=== PATIENT | female | born 1990 | race African-American/Black ===

== ENCOUNTER 2016-11-06 19:41 | Inpatient (IN) | payer OTHER ==
[~2016-11-06] VITALS: Ht 162.6 cm; Wt 108.2 kg
[2016-11-06 19:42] VITALS: BP 199/104; PULSE 89; RESP 24; TEMP 97.3; O2SAT 100
[2016-11-06 19:57] VITALS: BP 158/119; PULSE 74; RESP 20; O2SAT 99
[2016-11-06 20:49] LABS: AUTOMATED NEUTROPHIL # 4.5 TH/MM3 (1.8-7.7); BASOPHIL # 0.1 TH/MM3 (0-0.2); BASOPHIL % 0.9 % (0.0-2.0); EOSINOPHIL # 0.1 TH/MM3 (0-0.4); EOSINOPHIL % 1.2 % (0.0-4.0); HEMATOCRIT 38.6 % (35.0-46.0); LYMPH % 54.3 % (9.0-44.0); LYMPHOCYTE # 6.8 TH/MM3 (1.0-4.8); MEAN CELL VOLUME 79.7 FL (80.0-100.0); MEAN CORPUSCULAR HEMOGLOBIN 27.7 PG (27.0-34.0); MEAN CORPUSCULAR HGB CONC 34.7 % (32.0-36.0); MONO % 7.6 % (0.0-8.0); PLATELET COUNT 344 TH/MM3 (150-450); RED BLOOD COUNT 4.84 MIL/MM3 (4.00-5.30); RED CELL DISTRIBUTION WIDTH 14.7 % (11.6-17.2); WHITE BLOOD COUNT 12.5 TH/MM3 (4.0-11.0)
[2016-11-06 20:50] LABS: BETA HCG QUANT 3073 MIU/ML (0-5)
[2016-11-06 21:07] LABS: BLOOD, URINE NEG (NEG); COMMENT (UR) CATH-CULT NOT IND; CULTURE IF INDICATED CATH CULTURE NOT IND; GLUCOSE,URINE NEG (NEG); KETONE, URINE TRACE mg/dL (NEG); MUCUS URINE FEW /lpf (OCC); NITRITE,URINE NEG (NEG); SQUAMOUS EPITHELIAL CELL URINE 2 /hpf (0-5); URINE COLOR YELLOW (YELLW/STRAW)
[2016-11-06 21:13] LABS: HEMO FLAGS AUTO DIFF
--- NOTE | 2016-11-06 21:25 | PD ---
HPI Chief Complaint: Abdominal Pain Time Seen by Provider: 19:52 Travel History International Travel<30 days: No Contact w/Intl Traveler<30days: No Traveled to known affect area: No History of Present Illness HPI 25-year-old woman, 2 para 0 with previous ectopic and February of last year, last menstrual period October 09 reportedly 5 weeks presents with the abrupt onset of 10 out of 10 lower abdominal pain and cramping radiating into her back. Pain is primarily in her right lower quadrant radiating into her left lower quadrant. She states symptoms feel similar to when she had her ectopic about 6 months ago. She saw her online media buyer in [place] a couple days ago who reportedly confirmed her and was watching her closely because of her previous ectopic. She was referred to follow-up with a plastic manager down here now that she is moving back to the area. No vomiting. Denies any vaginal bleeding or vaginal discharge. She states prior to today she felt generally well and healthy. No history of abdominal surgery. History Past Medical History Narrative Medical Hypertension Ectopic History of cervicitis Tetanus Vaccination: < 5 Years Influenza Vaccination: No : 2 Past Surgical History Surgical History: No Previous Surgery Social History Alcohol Use: No Tobacco Use: Yes (09/29 PPD) Allergies-Medications (Allergen,Severity, Reaction): Coded Allergies: Amoxicillin (Verified Allergy, Severe, HIVES, 11/06/16) Latex (Verified Allergy, Severe, RASH, 11/06/16) Penicillin (Verified Allergy, Severe, HIVES, 11/06/16) Reglan (Verified Allergy, Severe, 11/06/16) Reported Meds & Prescriptions Reported Meds & Active Scripts Active No Active Prescriptions or Reported Medications Review of Systems Except as stated in HPI: all other systems reviewed are Neg Physical Exam Narrative GENERAL: Anxious 25-year-old woman, holding her abdomen. Appears uncomfortable. SKIN: Warm and dry. CARDIOVASCULAR: Regular rate and rhythm. No murmur appreciated. RESPIRATORY: No accessory muscle use. Clear to auscultation. Breath sounds equal bilaterally. GASTROINTESTINAL: Abdomen is obese, soft, moderate diffuse lower abdominal tenderness. Some voluntary guarding but no rebound. MUSCULOSKELETAL: No obvious deformities. No clubbing. No cyanosis. No edema. NEUROLOGICAL: Awake and alert. No obvious cranial nerve deficits. Motor grossly within normal limits. Normal speech. PSYCHIATRIC: Appropriate mood and affect; insight and judgment normal. : Normal external female genitalia. Moderate chunky white discharge in the vaginal vault. Some dark brown discharge as well. Moderate cervical motion tenderness. No palpable uterine enlargement or adnexal masses. Data Data Last Documented VS Vital Signs Date Time Temp Pulse Resp B/P Pulse Ox O2 Delivery O2 Flow Rate FiO2 11/06/16 22:56 64 18 166/98 99 Room Air 11/06/16 19:42 97.3 Orders Beta Hcg (Quant/Titer) (11/06/16 19:57) Gc And Chlamydia Pcr (11/06/16 19:57) Wet Prep Profile (11/06/16 19:57) Urinalysis - C+S If Indicated (11/06/16 19:57) Ed Poc Ultrasound (11/06/16 19:57) Complete Blood Count With Diff (11/06/16 20:19) Basic Metabolic Panel (Bmp) (11/06/16 20:19) Us Pelvis (Ques Pr/Ect)W Trans (11/06/16 ) Morphine Inj (Morphine Inj) (11/06/16 23:30) Admit Order (Ed Use Only) (11/06/16 ) Labs Laboratory Tests Test 11/06/16 11/06/16 11/06/16 20:04 20:20 20:39 Sodium Level 138 MEQ/L Potassium Level 3.6 MEQ/L Chloride Level 105 MEQ/L Carbon Dioxide Level 22.4 MEQ/L Anion Gap 11 MEQ/L Blood Urea Nitrogen 10 MG/DL Creatinine 1.13 MG/DL Estimat Glomerular Filtration 70 ML/MIN Rate Random Glucose 98 MG/DL Calcium Level 9.1 MG/DL Human Chorionic Gonadotropin, 3073 MIU/ML Quant White Blood Count 12.5 TH/MM3 Red Blood Count 4.84 MIL/MM3 Hemoglobin 13.4 GM/DL Hematocrit 38.6 % Mean Corpuscular Volume 79.7 FL Mean Corpuscular Hemoglobin 27.7 PG Mean Corpuscular Hemoglobin 34.7 % Concent Red Cell Distribution Width 14.7 % Platelet Count 344 TH/MM3 Mean Platelet Volume 9.3 FL Neutrophils (%) (Auto) 36.0 % Lymphocytes (%) (Auto) 54.3 % Monocytes (%) (Auto) 7.6 % Eosinophils (%) (Auto) 1.2 % Basophils (%) (Auto) 0.9 % Neutrophils # (Auto) 4.5 TH/MM3 Lymphocytes # (Auto) 6.8 TH/MM3 Monocytes # (Auto) 1.0 TH/MM3 Eosinophils # (Auto) 0.1 TH/MM3 Basophils # (Auto) 0.1 TH/MM3 CBC Comment AUTO DIFF Differential Total Cells 100 Counted Neutrophils % (Manual) 39 % Lymphocytes % 56 % Monocytes % 3 % Eosinophils % 1 % Basophils % 1 % Neutrophils # (Manual) 4.9 TH/MM3 Differential Comment FINAL DIFF MANUAL Atypical Lymphocytes % Platelet Estimate NORMAL Platelet Morphology Comment NORMAL Urine Color YELLOW Urine Turbidity CLEAR Urine pH 6.0 Urine Specific [place] 1.020 Urine Protein NEG mg/dL Urine Glucose (UA) NEG mg/dL Urine Ketones TRACE mg/dL Urine Occult Blood NEG Urine Nitrite NEG Urine Bilirubin NEG Urine Urobilinogen LESS THAN 2.0 MG/DL Urine Leukocyte Esterase TRACE Urine RBC 1 /hpf Urine WBC 1 /hpf Urine Squamous Epithelial 2 /hpf Cells Urine Bacteria /hpf Urine Mucus FEW /lpf Microscopic Urinalysis Comment CATH-CULT NOT IND Clue Cells (Wet Prep) NONE SEEN Vaginal Trichomonas (Wet Prep) NONE SEEN Vaginal Yeast (Wet Prep) PRESENT Chlamydia trachomatis DNA NOT DETECTED (PCR) Neisseria gonorrhoeae DNA NOT DETECTED (PCR) MDM Medical Decision Making Medical Screen Exam Complete: Yes Emergency Medical Condition: Yes Interpretation(s) LABS: CBC remarkable for mild leukocytosis BMP is unremarkable HCG is 3000 UA unremarkable Wet prep positive for yeast Serology pending Pelvic ultrasound: Negative for IUP with a beta hCG greater than 3000. Complex cystic lesion in the right ovary measuring about 1 cm diameter with questionable decidual reaction which is worrisome for ectopic . Some free fluid in the pelvis. Differential Diagnosis Threatened AB, cervicitis, UTI, ovarian cyst, appendicitis, renal lithiasis, other Narrative Course Medical decision making 25-year-old presents emergency department complaining of lower abdominal pain, abrupt onset, fairly severe, looks well otherwise. Patient is only 4 weeks by dates. She reports that her plastic manager told her she was 5 weeks . Her hCG is 3073. I think she is very early for ectopic . I don't think that she has appendicitis or renal lithiasis. Etiology of her pain remains unclear. We'll check pelvic ultrasound, possible ruptured ovarian cyst or ruptured corpus luteal cyst given the abrupt onset of pain. Likely need 48 hour repeat hCG. FINAL: Patient with apparent ectopic on ultrasound. HCG 3000+. Spoke with Dr. Lewis, OB hospitalist. She came to the bedside to evaluate the patient, the patient is going for surgical intervention. Diagnosis Primary Impression: Ectopic Qualified Code: O00.90 - Ectopic without intrauterine , unspecified location Scripts No Active Prescriptions or Reported Meds Calvin Patino MD Nov 06, 2016 21:25
[2016-11-06 21:36] LABS: BASOPHILS 1 % (0-2); EOSINOPHILS 1 % (0-4); NEUTROPHIL # MANUAL DIFF 4.9 TH/MM3 (1.8-7.7); POLYS (SEG NEUTROPHILS) 39 % (16-70); WBC DIFF SAMPLE 100
[2016-11-06 21:37] LABS: PLATELET ESTIMATE SMEAR NORMAL (NORMAL); PLATELET MORPHOLOGY NORMAL (NORMAL); SCAN/DIFF FINAL DIFF MANUAL
[2016-11-06 21:38] LABS: BICARBONATE 22.4 MEQ/L (21.0-32.0); POTASSIUM 3.6 MEQ/L (3.5-5.1)
--- NOTE | 2016-11-06 22:30 | RADRPT ---
EXAM DATE/TIME: 11/06/2016 21:27 [facility] COMPARISON: No previous studies available for comparison. INDICATIONS : Ectopic. LAB(S): Beta-hC MEDICAL HISTORY : . Hypertension. PID. SURGICAL HISTORY : None. ENCOUNTER: Subsequent ACUITY: 2 days PAIN SCORE: 10/10 LOCATION: Bilateral pelvis MEASUREMENTS: UTERUS: 7.1 x 3.3 x 4.2 cm ENDOMETRIAL STRIPE: 2 mm RIGHT OVARY: 5.4 x 3.1 x 4.8 cm LEFT OVARY: 2.5 x 1.9 x 1.3 cm FINDINGS: There is no evidence for an intrauterine with beta-hCG level greater than 3000. Within the right ovary there is a complex cystic lesion measuring about 1 cm in diameter with a questionable dec idual reaction. No yolk sac or pole is identified. There is free fluid in the pelvis. There is a simple appearing left ovarian cyst measuring up to 3.6 cm in diameter. CONCLUSION: 1. Negative for intrauterine with beta-hCG level greater than 3000. 2. Complex cystic lesion in the right ovary measuring about 1 cm in diameter with questionable decidu al reaction is worrisome for an ectopic . There is some free fluid in the pelvis. Larry Kwan MD on November 06, 2016 at 22:22 Board Certified Radiologist. This report was verified electronically.
[2016-11-06 22:56] VITALS: BP 166/98; PULSE 64; RESP 18; O2SAT 99
[2016-11-06] MEDS ORDERED: MORPHINE SULFATE 4 MG/ML INJ IV PUSH ONE (23:30)
[2016-11-06 23:40] LABS: CHLAMYDIA PCR NOT DETECTED (NOT DETECT); NEISSERIA PCR NOT DETECTED (NOT DETECT)
[2016-11-06] MEDS ORDERED: ONDANSETRON HCL 4 MG/2 ML VIAL IV ONE (23:45)
--- NOTE | 2016-11-07 00:10 | PD.CONS ---
HPI Travel History International Travel<30 Days: No Contact w/Intl Traveler<30Days: No Known Affected Area: No History of Present Illness HPI This patient is a 25-year-old 2 para 0010 her last normal menstrual period was September 16 [address] her at approximately 7 weeks gestation she presents to the main emergency room with right sided abdominal pain sudden onset around 7 PM no vaginal bleeding no weakness no dizziness no nausea or vomiting no fever or chills patient had a positive test and had an appointment with the [facility] tomorrow Significant in the patient's history is that in February 2016 she had an ectopic on the right side that was treated with methotrexate. Presently high suspicion for ectopic on the right side She's been nothing by mouth since approximately 9 AM this morning History Past Medical History Narrative Medical Patient is allergic to penicillin and amoxicillin latex and Reglan She has a history of hypertension she is presently on no medication FISHER NET history onset of her cycles at age 11 they last for 5 days in the interval is 30 days her cycles are regular She has a history of chlamydia in the past And the previous ectopic in February 2016 Obstetric History Obstetric History Right sided ectopic treated with methotrexate Past Surgical History Narrative Surgical No previous surgery Family History Narrative Family History Her mother has diabetes and hypertension Social History Alcohol Use: No Tobacco Use: Yes (smokes a half a pack of cigarettes per day) Substance Abuse: No Allergies-Medications (Allergen,Severity, Reaction): Coded Allergies: Amoxicillin (Verified Allergy, Severe, HIVES, 11/06/16) Latex (Verified Allergy, Severe, RASH, 11/06/16) Penicillin (Verified Allergy, Severe, HIVES, 11/06/16) Reglan (Verified Allergy, Severe, 11/06/16) Home Meds No Active Prescriptions or Reported Meds Review of Systems General / Constitutional: No: Fever, Weight Gain, Weight Loss, Chills, Other Eyes: No: Diploplia, Blurred Vision, Visual changes, Pain, Photophobia, Other HENT: No: Headaches, Vertigo, Dental Difficulties, Lightheadedness, Other Cardiovascular: No: Irregular Rhythm, Chest Pain or Discomfort, Palpitations, Tachycardia, Syncope, Varicosities, Edema, Cyanosis, Other Respiratory: No: Cough, Short of Breath, Wheezing, Other Gastrointestinal: Abdominal Pain (right sided abdominal pain) Genitourinary: Pelvic Pain (right side) Musculoskeletal: No: Limited ROM, Weakness, Cramping, Edema, Pain, Other Skin: No Rash, No Itching, No Dryness, No Lumps, No Change in Pigmentation, No Change in Nails, No Alopecia, No Lesions, No Breast Lumps, No Breast Tenderness , No Breast Swelling, No Other Neurologic: No: Weakness, Dizziness, Syncope, Focal Abnormalities, Coordination Problem, Headache, Slurred Speech, Seizures, Other Psychiatric: Other (patient has a previous history of attempted suicide hospitalized in the psych unit) Physical Exam Narrative GENERAL: Well-nourished, well-developed patient. She is alert oriented 3 and cooperative in mild distress secondary to abdominal pain SKIN: Warm and dry. HEAD: Normocephalic and atraumatic. EYES: No scleral icterus. No injection or drainage. Her conjunctiva are pink and sclerae are clear ENT: No nasal drainage noted. Mucous membranes pink. Airway patent. NECK: Supple, trachea midline. No JVD. CARDIOVASCULAR: Regular rate and rhythm without murmurs, gallops, or rubs. RESPIRATORY: Breath sounds equal bilaterally. No accessory muscle use. ABDOMEN/GI: Nondistended bowel sounds are slightly decreased tenderness diffusely questionable rebound tenderness in the lower quadrants Gravid to [-] weeks size Fundal Height: [-] Pelvic exam is as per the emergency room physician's examination GENITOURINARY: External Genitalia: intact and normal in appearance EXTREMITIES: No cyanosis or edema. NEUROLOGICAL: Awake and alert. Motor and sensory grossly within normal limits. Five out of 5 muscle strength in all muscle groups. Normal speech. Data Data Vital Signs Reviewed: Yes (blood pressure 168/98 respiration 18 O2 saturation is 99% pulse rate is 64) Orders Beta Hcg (Quant/Titer) (11/06/16 19:57) Gc And Chlamydia Pcr (11/06/16 19:57) Wet Prep Profile (11/06/16 19:57) Urinalysis - C+S If Indicated (11/06/16 19:57) Ed Poc Ultrasound (11/06/16 19:57) Complete Blood Count With Diff (11/06/16 20:19) Basic Metabolic Panel (Bmp) (11/06/16 20:19) Us Pelvis (Ques Pr/Ect)W Trans (11/06/16 ) Morphine Inj (Morphine Inj) (11/06/16 23:30) Admit Order (Ed Use Only) (11/06/16 ) Ondansetron Inj (Zofran Inj) (11/06/16 23:45) Labs Laboratory Tests Test 11/06/16 11/06/16 11/06/16 20:04 20:20 20:39 Sodium Level 138 Potassium Level 3.6 Chloride Level 105 Carbon Dioxide Level 22.4 Anion Gap 11 Blood Urea Nitrogen 10 Creatinine 1.13 Estimat Glomerular Filtration 70 Rate Random Glucose 98 Calcium Level 9.1 Human Chorionic Gonadotropin, 3073 Quant White Blood Count 12.5 Red Blood Count 4.84 Hemoglobin 13.4 Hematocrit 38.6 Mean Corpuscular Volume 79.7 Mean Corpuscular Hemoglobin 27.7 Mean Corpuscular Hemoglobin 34.7 Concent Red Cell Distribution Width 14.7 Platelet Count 344 Mean Platelet Volume 9.3 Neutrophils (%) (Auto) 36.0 Lymphocytes (%) (Auto) 54.3 Monocytes (%) (Auto) 7.6 Eosinophils (%) (Auto) 1.2 Basophils (%) (Auto) 0.9 Neutrophils # (Auto) 4.5 Lymphocytes # (Auto) 6.8 Monocytes # (Auto) 1.0 Eosinophils # (Auto) 0.1 Basophils # (Auto) 0.1 CBC Comment AUTO DIFF Differential Total Cells 100 Counted Neutrophils % (Manual) 39 Lymphocytes % 56 Monocytes % 3 Eosinophils % 1 Basophils % 1 Neutrophils # (Manual) 4.9 Differential Comment FINAL DIFF MANUAL Atypical Lymphocytes Platelet Estimate NORMAL Platelet Morphology Comment NORMAL Urine Color YELLOW Urine Turbidity CLEAR Urine pH 6.0 Urine Specific [place] 1.020 Urine Protein NEG Urine Glucose (UA) NEG Urine Ketones TRACE Urine Occult Blood NEG Urine Nitrite NEG Urine Bilirubin NEG Urine Urobilinogen LESS THAN 2.0 Urine Leukocyte Esterase TRACE Urine RBC 1 Urine WBC 1 Urine Squamous Epithelial 2 Cells Urine Bacteria Urine Mucus FEW Microscopic Urinalysis Comment CATH-CULT NOT IND Clue Cells (Wet Prep) NONE SEEN Vaginal Trichomonas (Wet Prep) NONE SEEN Vaginal Yeast (Wet Prep) PRESENT Chlamydia trachomatis DNA NOT DETECTED (PCR) Neisseria gonorrhoeae DNA NOT DETECTED (PCR) [facility] Medical Record Reviewed: No Interpretation(s) 25-year-old last normal menstrual period September 16, 2016 with the presumptive diagnosis of ruptured ectopic based on the following evidence; With right lower quadrant pain/questionable rebound tenderness in the lower abdomen Positive beta hCG at 3073 No intrauterine seen on ultrasound with fluid in the cul-de-sac Fluid in the cul-de-sac History of previous ectopic on the right/history of chlamydia repeat cultures are negative/cigarette smoker History of hypertension on no medication Penicillin amoxicillin and latex allergies History of hospitalization for suicide attempt Positive yeast on wet prep The plan; Have notify Dr. Dykes she is covering the emergency room/surgery for a diagnostic laparoscopy possible exploratory laparotomy As this patient has had a previous ectopic on the right side treated with methotrexate. The procedure indications and complications have been fully discussed with the patient bleeding infection accidental injury to bowel bladder or other structures in the abdomen inability to get in laparoscopically and the need for possible exploratory laparotomy possible loss of the involved adnexa possible D& C Possible need for blood transfusion Length of stay discussed with exploratory laparotomy as well as diagnostic laparoscopy Patient's questions were answered she understands and agrees Consent signed Admitting diagnosis: ectopic Scripts No Active Prescriptions or Reported Meds Elida Vernon MD Nov 07, 2016 00:10
[2016-11-07] MEDS ORDERED: BUPIVACAINE/EPINEPHRINE 0.25% PF 30 ML VIAL ONE ×2 (00:25→00:26)
[2016-11-07] MEDS ORDERED: ACETAMINOPHEN 1000 MG/100 ML VIAL IV ONE (00:32)
[2016-11-07] MEDS ORDERED: DICLOFENAC SODIUM 37.5 MG/ML VIAL IV PUSH ONE (00:32)
--- NOTE | 2016-11-07 01:41 | HHI.DCPOC ---
Discharge Care Plan Your Health Problems Are: Pelvic pain Report Symptoms to Your Doctor -Temperate above 100.5 degrees -Redness, of incision or excessive or foul smelling drainage -Unusual pain or calf pain -Increased vaginal bleeding -Painful or difficulty urinating -Feelings of extreme sadness or anxiety after 2 weeks Goals to Promote Your Health * To prevent worsening of your condition and complications * To maintain your health at the optimal level Directions to Meet Your Goals Take your medications as prescribed Follow your dietary instruction Follow activity as directed Ensure plenty of rest for recovery Drink fluids for hydration Keep your appointments as scheduled Take your immunizations and boosters as scheduled If your symptoms worsen call your PCP, if no PCP go to Urgent Care Center or Emergency Room Smoking is Dangerous to Your Health. Avoid second hand smoke Call the 24-hour crisis hotline for domestic abuse at Natividad Dykes MD Nov 07, 2016 01:41
[2016-11-07] MEDS ORDERED: ONDANSETRON HCL 4 MG/2 ML VIAL IVP PRN (01:45)
[2016-11-07] MEDS ORDERED: IBUPROFEN 600 MG TAB PO PRN (01:45)
[2016-11-07] MEDS ORDERED: diphenhydrAMINE HCL 25 MG CAP PO PRN (01:45)
[2016-11-07] MEDS ORDERED: SODIUM CHLORIDE 0.9% FLUSH 5 ML FLUSH FLUSH PRN (01:45)
[2016-11-07] MEDS ORDERED: oxyCODONE/ACETAMINOPHEN 5 MG/325 MG TAB PO PRN ×2 (01:45)
[2016-11-07] MEDS ORDERED: MIDAZOLAM HCL 2 MG/2 ML VIAL ONE (01:58)
[2016-11-07] MEDS ORDERED: fentaNYL CITRATE 250 MCG/5 ML AMP ONE ×2 (01:58)
[2016-11-07] MEDS ORDERED: *MEPERIDINE 25 MG INJ VIAL PERIprocedural Use ONLY ONE (02:13)
[2016-11-07] MEDS ORDERED: DO NOT ADM ANY ANTICOAGULANT DRUGS XX PRN (02:30)
[2016-11-07] MEDS ORDERED: *morphine SULFATE 8 MG/ML PERIprocedure ONLY ONE (02:58)
[2016-11-07 04:44] VITALS: BP 128/79; PULSE 75; RESP 18; TEMP 98; O2SAT 95
[2016-11-07 07:27] VITALS: BP 131/72; PULSE 71; RESP 20; TEMP 98.1; O2SAT 99
[2016-11-07] MEDS ORDERED: SODIUM CHLORIDE 0.9% FLUSH 5 ML FLUSH FLUSH SCH (09:00)
[2016-11-07] MEDS ORDERED: DOCUSATE SODIUM 100 MG CAP PO SCH (09:00)
[2016-11-07 09:40] VITALS: RESP 18
[2016-11-07] MEDS ORDERED: ONDANSETRON HCL 4 MG/2 ML VIAL IV PUSH ONE (12:00)
[2016-11-07] MEDS ORDERED: LACTATED RINGER'S 1000 ML INJ 1,000 ML IV ONE (12:00)
[2016-11-07] MEDS ORDERED: PROPOFOL 200 MG/20 ML AMP IV ONE (12:00)
--- NOTE | 2016-11-07 23:01 | MP ---
cc: ALEX RAHMAN DATE OF SURGERY 11/07/16 PREOPERATIVE DIAGNOSIS Right ectopic . POSTOPERATIVE DIAGNOSIS Right ectopic with left hydrosalpinx. PROCEDURE 1. Examination under anesthesia 2. Laparoscopic right salpingectomy, left salpingostomy, suction and irrigation. SURGEON Dr. Eugene Rahman ANESTHESIA General endotracheal anesthesia, Dr. Jackson FLUIDS 600 mL crystalloid ESTIMATED BLOOD LOSS 100 mL URINE OUTPUT 200 mL clear yellow at the end of the procedure. FINDINGS Right-sided ectopic was noted and the left hydrosalpinx was noted. The appendix appeared normal. Liver edge appeared normal. PROCEDURE IN DETAIL The patient was taken to the operating room where general anesthesia was found to be adequate. She was then prepped and draped in the normal sterile fashion in the dorsal lithotomy position. A Gardner catheter was inserted into the urinary bladder using sterile technique. A speculum was placed in the vagina. Single-tooth tenaculum applied to the into lip of the cervix. The uterus sounded to approximately 8 cm. A Bridj uterine manipulator was then placed. The single-tooth tenaculum and speculum were removed. The gloves were changed and attention was turned to the abdominal portion of the procedure. A 5-mm incision was made just above the umbilicus and a 5-mm trocar and camera were inserted into the abdominal cavity under direct visualization. The abdomen was insufflated with approximately 3-1/2 liters of CO2 gas. A 5-mm incision and trocar were placed in the right lower quadrant and a 10-12 mm incision and trocar were placed in the left lower quadrant. The right fallopian tube was noted with the ectopic and this was transected from the broad ligament using the harmonic scalpel. It was removed in an EndoCatch bag. Hemostasis was noted. The right ovary appeared normal. Upon inspection of the left adnexa, a left hydrosalpinx was noted. Salpingostomy was performed with the Harmonic scalpel and serous fluid was noted. This was suctioned. The pelvis was irrigated and suctioned. Hemostasis was assured. The right ureter was noted to be peristalsing transperitoneally. The appendix and the liver edge appeared normal. The suture passer was used to close the fascia and peritoneum of the left lower quadrant incision. The trocars and instruments were removed from the abdominal cavity. The gas was allowed to escape. The skin incisions were closed with 4-0 Monocryl. Steri-Strips were applied. The H[place]ka uterine manipulator and the Gardner catheter were removed. The patient was awakened from anesthesia and transferred to recovery room in stable condition. Pathology was right fallopian tube and ectopic . The sponge, lap, needle and instrument counts were correct. MD KHANH Schmitt/ /1:53 AM /10:48 PM
== END 2016-11-07 10:30 | disposition home or self-care (01) | DRG 777 ==
LOC: NEPC 19:41 → NEDA 23:35 → NEPFCDU 11-07 04:05
PROVIDERS: ADMIT Obstetrics & Gynecology; ATTEND Obstetrics & Gynecology
PROC: 10T24ZZ Resection of Products of Conception, Ectopic, Percutaneous Endoscopic Approach (ICD-10-PCS; 2016-11-07)
PROC: 0U964ZZ Drainage of Left Fallopian Tube, Percutaneous Endoscopic Approach (ICD-10-PCS; 2016-11-07)
PROC: 0UB54ZZ Excision of Right Fallopian Tube, Percutaneous Endoscopic Approach (ICD-10-PCS; principal; 2016-11-07 00:19)
DX: O00.10 Tubal pregnancy without intrauterine pregnancy (principal); O16.1 Unspecified maternal hypertension, first trimester; Z68.41 Body mass index [BMI] 40.0-44.9, adult; N70.11 Chronic salpingitis; O99.331 Smoking (tobacco) complicating pregnancy, first trimester; F17.210 Nicotine dependence, cigarettes, uncomplicated; O99.211 Obesity complicating pregnancy, first trimester; O26.899 Other specified pregnancy related conditions, unspecified trimester; K21.9 Gastro-esophageal reflux disease without esophagitis; Z3A.01 Less than 8 weeks gestation of pregnancy
CPT/HCPCS: 76700; 76817; 80048; 81001; 84702; 85007; 85027; 87210; 87491; 87591; 88305; J0131; J1130; J2175; J2250; J2270; J2405; J3010; J7120

== ENCOUNTER 2017-03-01 08:42 | Emergency (ER) | payer OTHER ==
[2017-03-01 08:44] VITALS: BP 157/92; PULSE 74; RESP 20; TEMP 98.9; O2SAT 100
[2017-03-01] MEDS ORDERED: IBUPROFEN 600 MG TAB PO ONE (09:15)
[2017-03-01] MEDS ORDERED: DICYCLOMINE HCL 10 MG CAP PO ONE (09:15)
[2017-03-01] MEDS ORDERED: IBUP-232 PO (09:18)
[2017-03-01] MEDS ORDERED: DICY10 PO (09:18)
--- NOTE | 2017-03-01 09:22 | PD ---
HPI Chief Complaint: Abdominal Pain Time Seen by Provider: 09:12 Travel History International Travel<30 days: No Contact w/Intl Traveler<30days: No Traveled to known affect area: No History of Present Illness HPI 26 yo F c/o approx 2 days intermittent crampy pain in lower abdomen/pelvis and in R abdomen. LMP 1 week ago approximately. with 2 ectopic pregnancies. Pt denies VD/VB. No n/v/d. No fever. Pt wonders if it could be related to resection of R fallopian tube performed approx 3 months ago due to ectopic . No polyuria/polydipsia. Vague sensation of incomplete emptying of the bladder is reported. PFSH Past Medical History Anemia: Yes Asthma: Yes Depression: Yes Cardiovascular Problems: No Diminished Hearing: No Gastrointestinal Disorders: No Genitourinary: Yes (PID) Hypertension: Yes Musculoskeletal: No Respiratory: Yes Immunizations Current: Yes Migraines: Yes Sickle Cell Disease: No : 2 Ectopic : Yes Past Surgical History Other Surgery: No Social History Alcohol Use: No Tobacco Use: Yes (smokes a half a pack of cigarettes per day) Substance Use: Yes Allergies-Medications (Allergen,Severity, Reaction): Coded Allergies: Amoxicillin (Verified Allergy, Severe, HIVES, 03/01/17) Latex (Verified Allergy, Severe, RASH, 03/01/17) Penicillin (Verified Allergy, Severe, HIVES, 03/01/17) Reglan (Verified Allergy, Severe, 03/01/17) Reported Meds & Prescriptions Reported Meds & Active Scripts Active Bactrim DS (Sulfamethoxazole-Trimethoprim) 800-160 Mg Tab 1 Tab PO BID Ibuprofen 600 Mg Tab 600 Mg PO Q8H PRN 3 Days Bentyl (Dicyclomine HCl) 10 Mg Cap 10 Mg PO TID PRN Review of Systems Except as stated in HPI: all other systems reviewed are Neg General / Constitutional: No: Fever Cardiovascular: No: Chest Pain or Discomfort Respiratory: No: Cough, Shortness of Breath Gastrointestinal: Positive: Abdominal Pain, No: Nausea, Vomiting, Diarrhea Genitourinary: No: Urgency, Frequency, Dysuria, Dribbling, Incontinence, Flank Pain, Discharge, Vaginal Bleeding Physical Exam Narrative GENERAL: 26 yo F, WNWD, NAD SKIN: Warm and dry. HEAD: Atraumatic. Normocephalic. EYES: Pupils equal and round. No scleral icterus. No injection or drainage. ENT: No nasal bleeding or discharge. Mucous membranes pink and moist. NECK: Trachea midline. No JVD. CARDIOVASCULAR: Regular rate and rhythm. RESPIRATORY: No accessory muscle use. Clear to auscultation. Breath sounds equal bilaterally. GASTROINTESTINAL: Soft. Minimal diffuse tenderness nonspecific in nature. MUSCULOSKELETAL: Extremities without clubbing, cyanosis, or edema. No obvious deformities. NEUROLOGICAL: Awake and alert. No obvious cranial nerve deficits. Motor grossly within normal limits. Five out of 5 muscle strength in the arms and legs. Normal speech. PSYCHIATRIC: Appropriate mood and affect; insight and judgment normal. Data Data Last Documented VS Vital Signs Date Time Temp Pulse Resp B/P Pulse Ox O2 Delivery O2 Flow Rate FiO2 03/01/17 08:44 98.9 74 20 157/92 100 Room Air VS noted Orders Beta Hcg (Quant/Titer) (03/01/17 09:12) Urinalysis - C+S If Indicated (03/01/17 09:12) Dicyclomine (Bentyl) (03/01/17 09:15) Ibuprofen (Motrin) (03/01/17 09:15) Urine Culture (03/01/17 09:15) Labs Laboratory Tests Test 03/01/17 09:15 Urine Color YELLOW Urine Turbidity HAZY Urine pH 5.5 Urine Specific [place] 1.018 Urine Protein NEG mg/dL Urine Glucose (UA) NEG mg/dL Urine Ketones NEG mg/dL Urine Occult Blood NEG Urine Nitrite NEG Urine Bilirubin NEG Urine Urobilinogen LESS THAN 2.0 MG/DL Urine Leukocyte Esterase LARGE Urine RBC 0-3 /hpf Urine WBC 9-14 /hpf Urine Squamous Epithelial > 8 /hpf Cells Urine Bacteria MOD /hpf Microscopic Urinalysis Comment CULTURE INDICATED MDM Medical Decision Making Medical Screen Exam Complete: Yes Emergency Medical Condition: Yes Medical Record Reviewed: Yes Differential Diagnosis Constipation, Gastritis, Acute Cholecystitis, Biliary Colic, Pancreatitis, ARTEAGA , Hepatitis, Bowel Obstruction, Cystitis, Mesenteric Ischemia, AAA, Appendicitis , Renal Stone/Hydronephrosis, GERD, perforated viscous Narrative Course POC negative UA suggestive of UTI Scrips as below. Diagnosis Primary Impression: Cystitis Referrals: Mounika Mccall MD 2 days Additional Instructions: You have a choice when it comes to health care, and we are glad that you chose [email or web address]. Hopefully, we have met your expectations on today's visit. You are welcome to return to [email or web address] at any time, as we are committed to meeting the health care needs of our community. Med/Other Pt SpecificInfo: Prescription(s) given Scripts Phenazopyridine (Pyridium)100 Mg [id number] Mg PO Q8H PRN (DYSURIA) #6 TAB Ref 0 Prov:Bairon Escobedo MD 03/01/17 Sulfamethoxazole-Trimethoprim (Bactrim DS)800-160 Mg Tab1 Tab PO BID #6 TAB Ref 0 Prov:Bairon Escobedo MD 03/01/17 Ibuprofen 600 Mg [id number] Mg PO Q8H PRN (PAIN) 3 Days Ref 0 Prov:Bairon Escobedo MD 03/01/17 Dicyclomine (Bentyl)10 Mg Cap10 Mg PO TID PRN (Bowel Management) #10 CAP Ref 0 Prov:Bairon Escobedo MD 03/01/17 Disposition: 01 DISCHARGE HOME Condition: Stable Bairon Escobedo MD Mar 01, 2017 09:22
[2017-03-01 09:40] LABS: BLOOD, URINE NEG (NEG); GLUCOSE,URINE NEG (NEG); KETONE, URINE NEG (NEG); NITRITE,URINE NEG (NEG); PH, URINE 5.5 (5.0-8.5); URINE COLOR YELLOW (YELLW/STRAW)
[2017-03-01 09:47] LABS: BACTERIA, URINE MOD /hpf; CULTURE IF INDICATED CULTURE INDICATED; RBC, URINE 0-3 /hpf (0-3); SQUAMOUS EPITHELIAL CELL URINE > 8 /hpf (0-5)
[2017-03-01 09:48] LABS: COMMENT (UR) CULTURE INDICATED; COMMENT2 (UR) CULTURE INDICATED
[2017-03-01] MEDS ORDERED: PHEN0.4T PO (09:51)
[2017-03-01] MEDS ORDERED: BACT800T5 PO (09:51)
== END 2017-03-01 10:15 | disposition home or self-care (01) ==
LOC: NEPD 08:42
DX: N30.90 Cystitis, unspecified without hematuria (principal); F17.210 Nicotine dependence, cigarettes, uncomplicated; I10 Essential (primary) hypertension; B96.89 Other specified bacterial agents as the cause of diseases classified elsewhere
CPT/HCPCS: 81001; 87086; 99284